=== PATIENT | female | born 1965 | race Caucasian/White ===

== ENCOUNTER 2017-09-30 08:08 | Day surgery (SDC) | payer BC ==
[~2017-09-30] VITALS: Ht 162.6 cm; Wt 96.2 kg
[2017-09-30] MEDS ORDERED: PROPOFOL 200MG/ 20ML VIAL (DIPRIVAN) IV ONE (10:55)
[2017-09-30] MEDS ORDERED: SEVOFLURANE 15 MIN GAS INH ONE (10:55)
[2017-09-30] MEDS ORDERED: LR 1,000 ML IV.SOLN IV ONE (10:55)
[2017-09-30] MEDS ORDERED: MIDAZOLAM HCL 5 MG/ML VIAL (VERSED) IV ONE (10:55)
[2017-09-30] MEDS ORDERED: KETOROLAC TROMETHAMINE 30 MG VIAL ONE (10:55)
[2017-09-30] MEDS ORDERED: NS IRRIG SOLN 1000 ML IR ONE (10:55)
[2017-09-30] MEDS ORDERED: fentaNYL CITRATE/PF 100 MCG/2 ML AMP ONE ×2 (10:55→11:30)
[2017-09-30] MEDS ORDERED: ONDANSETRON HCL 4 MG/2 ML VIAL ONE (10:55)
[2017-09-30] MEDS ORDERED: fentaNYL CITRATE/PF 100 MCG/2 ML AMP IVP ONE (11:30)
[2017-09-30] MEDS ORDERED: fentaNYL CITRATE/PF 100 MCG/2 ML AMP IVP PRN ×2 (13:00)
[2017-09-30 13:40] VITALS: BP_SYST 123
== END 2017-09-30 13:20 | disposition home or self-care (01) ==
LOC: SDS 08:08 → SMU 08:23 → SDS 13:20
PROVIDERS: ATTEND Obstetrics & Gynecology
DX: N93.9 Abnormal uterine and vaginal bleeding, unspecified (principal); M79.7 Fibromyalgia; K21.9 Gastro-esophageal reflux disease without esophagitis; D50.9 Iron deficiency anemia, unspecified; E55.9 Vitamin D deficiency, unspecified; Z88.0 Allergy status to penicillin; Z68.36 Body mass index [BMI] 36.0-36.9, adult; Z79.899 Other long term (current) drug therapy; E66.9 Obesity, unspecified; Z98.84 Bariatric surgery status; Z90.49 Acquired absence of other specified parts of digestive tract; Z98.890 Other specified postprocedural states
CPT/HCPCS: 36415; 86886; 86900; 86901; 88305; J1885; J2250; J2405; J2704; J3010; J7120